=== PATIENT | male | born 1995 | race Caucasian/White ===

== ENCOUNTER → 2022-05-11 | Outpatient (CLI) | payer BC ==
--- NOTE | 2022-05-11 10:11 | Diagnostic Imaging Report ---
PROCEDURE: MRI lumbar spine. TECHNIQUE: Multiplanar, multisequence MRI of the lumbar spine was performed without contrast. INDICATION: Lumbago with sciatica. Lumbar spinal curvature and alignment are unremarkable. Vertebral body heights are maintained. Conus medullaris has a normal appearance at the L1 level. There is a large left paramedian protrusion of L5-S1 disc resulting in mild spinal and severe left lateral recess stenosis with moderate left neural foraminal stenosis. No marrow signal abnormality seen. There is no evidence of paraspinous abnormality. IMPRESSION: Large left paramedian L5-S1 disc protrusion results in mild spinal stenosis with severe left lateral recess and moderate left neural foraminal stenosis. Dictated by: Dictated on workstation # [id number]
== END ==
LOC: RAD 08:35
PROVIDERS: ATTEND Nurse Practitioner Family
DX: M51.17 Intervertebral disc disorders with radiculopathy, lumbosacral region (principal); M48.07 Spinal stenosis, lumbosacral region; R20.2 Paresthesia of skin
CPT/HCPCS: 72148

== ENCOUNTER 2022-06-12 11:25 | Outpatient (RCR) | payer BC | END 2022-06-16 | disposition home or self-care (01) | PROVIDERS: ATTEND Orthopaedic Surgery Orthopaedic Surgery of the Spine | DX: M54.16 Radiculopathy, lumbar region (principal) ==